=== PATIENT | female | born 1980 | race Caucasian/White ===

== ENCOUNTER 2020-02-09 08:21 | Emergency (ER) | payer MEDICAID ==
[~2020-02-09] VITALS: Ht 154.9 cm; Wt 100.0 kg
[2020-02-09] MEDS ORDERED: CLON0.3T PO (08:28)
[2020-02-09] MEDS ORDERED: ALBU8HFA IH (08:28)
[2020-02-09] MEDS ORDERED: GABA-533 PO (08:28)
[2020-02-09] MEDS ORDERED: ALBUTEROL SULFATE HFA 90 MCG/PUFF 8 GM INHALER IH ONE (08:45)
[2020-02-09 08:48] VITALS: BP 140/88
== END 2020-02-09 09:39 | disposition home or self-care (01) ==
LOC: EMS 08:23
DX: Z76.0 Encounter for issue of repeat prescription (principal); J45.909 Unspecified asthma, uncomplicated; I10 Essential (primary) hypertension
CPT/HCPCS: 94640; J3535